=== PATIENT | male | born 1945 | race Caucasian/White ===

== ENCOUNTER 2019-09-08 20:58 | Observation (INO) | payer MEDICARE ==
[2019-09-08 21:17] LABS: #Eosinphils 0.2 thou/uL (0.0-0.7); #Lymphocytes 1.8 thou/uL (1.20-3.40); #Monocytes 0.8 thou/uL (0.11-0.59); #Neutrophils 2.6 thou/uL (1.40-6.50); %Basophils 0.7 % (0.0-1.0); %Eosinophils 3.6 % (0.0-10.0); %Lymphocytes 32.7 % (21.0-51.0); %Monocytes 14.9 % (0.0-10.0); %Neutrophils 48.1 % (42.0-75.0); Hemoglobin 14.1 g/dL (14.0-18.0); Mean Corpuscular HGB CONC 33.9 g/dL (32.0-36.0); Mean Corpuscular Hemoglobin 33.1 pg (27.0-31.0); Mean Corpuscular Volume 97.8 fL (78.0-98.0); Mean Platelet Volume 6.9 fL (7.4-10.4); Platelet Count 225 thou/uL (130-400); RBC Distribution Width 11.3 % (11.5-14.5); Red Blood Cell (RBC) Count 4.25 mill/uL (4.70-6.10); White Blood Cell (WBC) Count 5.3 thou/uL (4.8-10.8)
[2019-09-08 21:34] LABS: ALT (SGPT) 14 U/L (8-55); AST (SGOT) 17 U/L (5-34); Alkaline Phosphatase 68 U/L (40-110); Anion Gap 11 mmol/L (10-20); BUN (Urea Nitrogen) 28 mg/dL (8.4-25.7); Bilirubin, Total 0.5 mg/dL (0.2-1.2); Calc. Creatinine Clearance 0 mL/min (70-130); Carbon Dioxide 29 mmol/L (23-31); Chloride 102 mmol/L (98-107); Estimated GFR-MDRD Greater than 90; Globulin 2.3 g/dL (2.4-3.5); Glucose 115 mg/dL (83-110); Potassium 4.1 mmol/L (3.5-5.1); Protein, Total 6.3 g/dL (5.8-8.1); Sodium 138 mmol/L (136-145)
[2019-09-08 21:38] LABS: CKMB 3.2 ng/mL (0-6.6)
--- NOTE | 2019-09-08 22:04 | RAD ---
Chest AP view INDICATION: Chest pain COMPARISON: Chest radiograph dated March 07, 2015 FINDINGS: Lungs:Stable left lower lobe scarring. No airspace consolidation. Cardiac silhouette:The cardiomediastinal silhouette appears within normal limits. Pulmonary vasculature:Normal Pleural spaces:No pleural effusion or pneumothorax is demonstrated. Upper abdomen:No abnormality seen. Osseous structures: No acute osseous abnormality. Additional findings:None. IMPRESSION: No acute cardiopulmonary abnormality.
[2019-09-08] MEDS ORDERED: Aspirin Chewable 81 MG TAB ONE (22:19)
[2019-09-09 01:03] LABS: Troponin I Less than 0.010 ng/mL (< 0.028)
[2019-09-09] MEDS ORDERED: Nitroglycerin 0.4 MG TAB (25 Tab Bottle) PO PRN (01:04)
--- NOTE | 2019-09-09 01:43 | HP ---
TIME OF ASSESSMENT: 29. CHIEF COMPLAINT: Central chest pain radiating to the left jaw. HISTORY OF PRESENT ILLNESS: Mr. Larry is a 74-year-old gentleman presenting to the emergency department with complaints of central chest pain that started while he was watching TV earlier this evening. The patient states the pain persisted for an extended period of time. He is unsure exactly how long, but he became concerned when the pain radiated to the right side of his jaw. The patient reports having 4 coronary artery stents in the past back in 2001. He also reports having a stress test in 2013, which was normal. The patient states this evening when the pain started, it was between 5/10 in severity. He took nitroglycerin x3, each dose 20 minutes apart. States with each dose, it came down by about one point. He also tried taking milk of magnesia and took his lisinopril. His blood pressure after the nitroglycerin was in the 140s. He is unsure what it was prior to taking it. The patient denies any associated nausea, vomiting, diaphoresis, or shortness of breath. States he has felt well in recent days. He has noted some swelling in his right ankle, which he states is chronic due to previous injury. EMERGENCY DEPARTMENT COURSE: In the emergency department, the patient underwent an EKG which showed normal sinus rhythm with a heart rate of 72. He was noted to have an incomplete right bundle-branch block. He was given 324 mg of aspirin. He had a chest x-ray done, which showed no acute cardiopulmonary abnormality. He had laboratory studies done including a D-dimer which was negative. White count was 5.3, hemoglobin 41.6, platelets 225. BUN 28, creatinine 0.75, GFR greater than 90, glucose 115. LFTs unremarkable. Lipase normal. CK-MB 3.2. Troponin negative. PAST MEDICAL HISTORY: 1. Coronary artery disease. 2. Hypertension. 3. Obesity. PAST SURGICAL HISTORY: 1. Hernia repair. 2. Cardiac stents x4 in 2001. SOCIAL HISTORY: The patient denies any tobacco use, alcohol consumption, or illicit drug use. PHYSICAL EXAMINATION: GENERAL: The patient appears well developed, well nourished, is in no acute distress. VITAL SIGNS: Temperature 98.5, pulse 64, blood pressure 134/75, respirations 22, O2 saturation 98% on room air. HEENT: Normocephalic and atraumatic. Pupils are equal, round, and reactive to light. Sclerae without icterus. Oropharynx is clear. NECK: Supple. No lymphadenopathy. LUNGS: Clear to auscultation bilaterally without any wheezes, rales, or rhonchi. CARDIAC: Regular rate and rhythm without audible murmurs, rubs, or gallops. ABDOMEN: Soft, nontender, nondistended. Normoactive bowel sounds present. No guarding or rigidity. No renal angle tenderness. EXTREMITIES: Notable for swelling involving the right lower leg, which the patient states is chronic. No calf tenderness. NEUROLOGIC: Alert and oriented x3. SKIN: Warm and dry. INVESTIGATIONS: As mentioned above in HPI. IMPRESSION AND PLAN: Mr. Larry is a pleasant 74-year-old gentleman who is being admitted for management of the followin. Acute coronary syndrome rule out. The patient with central chest pain radiating to the jaw. EKG showed an incomplete right bundle-branch block. No ST changes or T-wave abnormalities. Troponin negative. Stress test done in May 2014 was a nuclear medicine myocardial perfusion scan that showed an unremarkable myocardial perfusion. The patient initially requesting to have an exercise treadmill stress test done, which he states was what he needed to have done in the past, but he does not undergo farm stress test. Given that the last stress test was a simple treadmill test for rather a nuclear medicine scan, the patient states he would like to discuss further with Dr. Sood before proceeding with any additional testing. The patient does not recall when his last echo was. At present, he remains pain free. He will remain on continuous cardiac monitoring. As mentioned, we will continue to trend troponins. 2. Hypertension. Monitor blood pressure. Resume home medications once verified. 3. Gastrointestinal prophylaxis with famotidine. 4. Deep venous thrombosis prophylaxis. The patient is ambulatory. 5. Code status full. Surrogate decision maker is his , Karmen Novoa. Case discussed with attending who agrees with plan of care as described above. Job ID: [id number]
[2019-09-09] MEDS: Sodium Chloride 0.9% 1,000 ML IV SCH ×2 (01:53→18:15)
[2019-09-09 04:05] LABS: #Eosinphils 0.1 thou/uL (0.0-0.7); #Lymphocytes 1.3 thou/uL (1.20-3.40); #Monocytes 0.6 thou/uL (0.11-0.59); #Neutrophils 2.8 thou/uL (1.40-6.50); %Basophils 0.2 % (0.0-1.0); %Eosinophils 3.1 % (0.0-10.0); %Lymphocytes 27.6 % (21.0-51.0); %Monocytes 11.6 % (0.0-10.0); %Neutrophils 57.5 % (42.0-75.0); Hemoglobin 13.3 g/dL (14.0-18.0); Mean Corpuscular HGB CONC 35.2 g/dL (32.0-36.0); Mean Corpuscular Hemoglobin 34.2 pg (27.0-31.0); Mean Corpuscular Volume 97.3 fL (78.0-98.0); Mean Platelet Volume 7.3 fL (7.4-10.4); Platelet Count 196 thou/uL (130-400); RBC Distribution Width 11.2 % (11.5-14.5); Red Blood Cell (RBC) Count 3.88 mill/uL (4.70-6.10); White Blood Cell (WBC) Count 4.8 thou/uL (4.8-10.8)
[2019-09-09 04:33] LABS: Anion Gap 9 mmol/L (10-20); BUN (Urea Nitrogen) 22 mg/dL (8.4-25.7); Calc. Creatinine Clearance 0 mL/min (70-130); Calcium 8.8 mg/dL (7.8-10.44); Carbon Dioxide 25 mmol/L (23-31); Cardiac Risk 2.5 (Less than 4.5); Chloride 105 mmol/L (98-107); Cholesterol 124 mg/dl (< 200 Desired); Estimated GFR-MDRD Greater than 90; Glucose 98 mg/dL (83-110); HDL Cholesterol 50 mg/dL (>60 Neg Risk); LDL Cholesterol, Calculated 65 mg/dL; Potassium 4.1 mmol/L (3.5-5.1); Sodium 135 mmol/L (136-145); Triglycerides 45 mg/dL (Less than 150)
[2019-09-09 06:06] VITALS: BMI 26.7
[2019-09-09] MEDS ORDERED: Lisinopril 5 MG TAB PO SCH (09:00)
[2019-09-09] MEDS ORDERED: Famotidine/PF 20 mg/2ml Vial SLOW IVP SCH (09:00)
[2019-09-09] MEDS ORDERED: Aspirin 81 mg Enteric Coated Tablet PO SCH (09:00)
[2019-09-09] MEDS ORDERED: Clopidogrel Bisulfate 75 MG TAB PO SCH (09:00)
[2019-09-09] MEDS ORDERED: Mag-Al 1200 mg/1200 mg/30 ML UDCUP PO PRN (10:16)
--- NOTE | 2019-09-09 10:37 | PRG ---
DATE OF SERVICE: 09/09/2019 SUBJECTIVE: Mr. Larry was admitted to the hospital with epigastric pain radiating up the middle of his chest. It is atypical. The patient does have history of esophageal reflux as well as coronary artery disease. OBJECTIVE: VITAL SIGNS: This morning, blood pressure 164/80, pulse 64 and regular. LUNGS: Clear. CARDIAC: Normal S1, normal S2. ABDOMEN: Soft, nontender. EXTREMITIES: There is no edema. DIAGNOSTIC STUDIES: EKG shows no acute changes. LABORATORY DATA: Cardiac enzymes were negative. ASSESSMENT: 1. History of coronary artery disease with previous stent implantation. 2. History of esophageal reflux, not taking any medicines for that. PLAN: 1. Give him Pepcid IV as is being ordered. 2. One dose of Maalox. 3. Proceed with stress testing. Job ID: [id number]
[2019-09-09 16:44] VITALS: BP 153/59; TEMP 97.4
--- NOTE | 2019-09-09 16:51 | NM ---
CARDIAC SPECT: 09/09/19 HISTORY: 74-year-old male with chest pain, coronary artery disease, status post stent, hypertension. TECHNIQUE: A myocardial perfusion scan is performed using the single isotope one day protocol with technetium 99 m-Sestamibi. 10 millicuries injected intravenously for rest followed by 27 millicuries for the stress study. Excise stress was monitored and interpreted by . FINDINGS: Fairly homogeneous tracer distribution seen in the myocardial segments without fixed or reversible de fects. Gated SPECT LVEF: 72%. Wall motion exam: Normal. IMPRESSION: Normal myocardial perfusion scan. POS: OFF
[2019-09-09] MEDS ORDERED: Rosuvastatin 20 MG TAB PO SCH (21:00)
--- NOTE | 2019-09-10 14:49 | DIS ---
DATE OF ADMISSION: 09/09/2019 DATE OF DISCHARGE: 09/09/2019 PRIMARY CARE PHYSICIAN: Georges Corbett. REASON FOR ADMISSION: Chest pain. DIAGNOSES AT DISCHARGE: 1. Chest pain, resolved. 2. Coronary artery disease with previous stent placement. 3. Esophageal reflux disease. 4. Hypertension. 5. Obesity. PROCEDURES: Nuclear medicine stress testing showing a normal myocardial perfusion scan. CONSULTATIONS: Cardiology, Dr. Sood. SUMMARY OF HOSPITAL COURSE: This is a 74-year-old white male with a known history of coronary artery disease and previous stent. He developed chest pain, took some old nitroglycerins he had at home. This helped chest pain come down. He came into the emergency room. There, he was found to have a negative EKG, negative D-dimer, normal chest x-ray. Negative troponins. The patient was observed in the hospital. Dr. Sood was consulted from Cardiology due to the patient's known coronary artery disease. Dr. Sood ordered a nuclear medicine stress test which came back normal. I did discuss the patient with Dr. Sood and he recommended discharge on Protonix and then followup with him in the clinic. The patient was asymptomatic at the time of discharge and was eager to go home. He did ask that I call in a new prescription for the nitroglycerin as his are quite old. DISCHARGE MANAGEMENT: Discharged home. ACTIVITY: As tolerated. DIET: Healthy heart diet. FOLLOWUP: Follow up with Dr. Sood, his office will call to make the appointment. DISCHARGE MEDICATIONS: 1. Aspirin 81 mg daily, 30 tablets dispensed. 2. Nitroglycerin 0.4 mg sublingual q.5 minutes up to three doses as needed for chest pain, 20 tablets dispensed. 3. Pantoprazole 40 mg daily, 30 tablets dispensed. 4. Plavix 75 mg daily. 5. Lisinopril 5 mg twice a day. 6. Rosuvastatin 20 mg at night. 7. Metoprolol-XL 25 mg daily. Job ID: [id number]
--- NOTE | 2019-09-12 14:30 | EKG ---
Test Reason : Blood Pressure : / mmHG Vent. Rate : 072 BPM Atrial Rate : 072 BPM P-R Int : 196 ms QRS Dur : 102 ms QT Int : 368 ms P-R-T Axes : 051 017 050 degrees QTc Int : 402 ms Normal sinus rhythm Possible Left atrial enlargement Incomplete right bundle branch block Septal infarct , age undetermined Abnormal ECG Confirmed by RACH MATHUR M.D. ([id number]), slot editor SANCHEZ NUÑEZ ([id number]) on 09/12/2019 2:29:42 PM Referred By: Confirmed By:RACH MATHUR M.D.
== END 2019-09-09 18:47 | disposition home or self-care (01) ==
LOC: ERS 20:58 → 2SW 09-09 00:59
PROVIDERS: ADMIT Internal Medicine; ATTEND Emergency Medicine
DX: R07.89 Other chest pain (principal); I45.10 Unspecified right bundle-branch block; I10 Essential (primary) hypertension; I25.10 Atherosclerotic heart disease of native coronary artery without angina pectoris; K21.9 Gastro-esophageal reflux disease without esophagitis; E66.9 Obesity, unspecified; Z68.26 Body mass index [BMI] 26.0-26.9, adult; Z79.02 Long term (current) use of antithrombotics/antiplatelets; Z79.899 Other long term (current) drug therapy; Z88.0 Allergy status to penicillin; Z95.5 Presence of coronary angioplasty implant and graft
CPT/HCPCS: 71045; 78452; 80048; 80053; 80061; 82553; 83690; 84484 ×3; 85025 ×2; 85379; 93005; 93017; 96361; 96374; 97139; 99285; A9500; G0378 ×2; 36415; S0028

== ENCOUNTER 2022-01-17 10:18 | Outpatient (CLI) | payer MEDICARE ==
[2022-01-17 12:28] LABS: Hemoglobin 14.5 g/dL (13.5-17.5); Mean Corpuscular HGB CONC 34.3 g/dL (32.0-36.0); Mean Corpuscular Hemoglobin 32.6 pg (27.0-33.0); Mean Corpuscular Volume 95.1 fl (81.2-95.1); Mean Platelet Volume 9.9 fl (7.4-10.4); Platelet Count 247 10x3/uL (150-450); RBC Distribution Width 12.3 % (11.5-14.5); Red Blood Cell (RBC) Count 4.45 10x6/uL (4.32-5.72); White Blood Cell (WBC) Count 4.6 10x3/uL (3.5-10.5)
[2022-01-17 12:56] LABS: INR-International Normal Ratio 0.9; PTT 26.4 sec (22.0-33.0)
[2022-01-17 13:27] LABS: Anion Gap 15 mmol/L (10-20); BUN (Urea Nitrogen) 18 mg/dL (8.4-25.7); Calc. Creatinine Clearance 0 mL/min (70-130); Calcium 9.4 mg/dL (7.8-10.44); Carbon Dioxide 24 mmol/L (23-31); Chloride 104 mmol/L (98-107); Glucose 108 mg/dL (83-110); Potassium 5.1 mmol/L (3.5-5.1); Sodium 138 mmol/L (136-145)
== END 2022-01-17 10:19 | disposition home or self-care (01) ==
LOC: LABBT 10:18
PROVIDERS: ATTEND Urology
DX: Z01.818 Encounter for other preprocedural examination (principal); D49.4 Neoplasm of unspecified behavior of bladder; Z20.822 Contact with and (suspected) exposure to COVID-19
CPT/HCPCS: 80048; 85027; 85610; 85730; 87086; 93005; U0003; U0005; 93010

== ENCOUNTER 2022-01-22 05:53 | Inpatient (IN) | payer MEDICARE ==
[2022-01-19 10:44] VITALS: BMI 27.3
[2022-01-22] MEDS ORDERED: Iopamidol 45 ML ONE (07:20)
[2022-01-22] MEDS ORDERED: Levofloxacin 500 mg/D5W 100 ml Premix Bag ONE (07:28)
[2022-01-22] MEDS ORDERED: Fentanyl 100 MCG/2 ML VIAL ONE (07:32)
[2022-01-22] MEDS ORDERED: Dexamethasone 20 MG/5 ML VIAL ONE (07:38)
[2022-01-22] MEDS ORDERED: Lidocaine 1% PF 5 ML VIAL ONE (07:38)
[2022-01-22] MEDS ORDERED: Rocuronium Bromide 10 MG/ML (10ML VIAL) ONE (07:38)
[2022-01-22] MEDS ORDERED: PROPOFOL 200 MG/20 ML VIAL ONE (07:38)
[2022-01-22] MEDS ORDERED: Ondansetron PF 4 MG/2 ML Vial ONE (07:38)
[2022-01-22] MEDS ORDERED: Racepinephrine 2.25% 0.5 ML NEB ONE (08:59)
[2022-01-22] MEDS ORDERED: Oxymetazoline HCl 0.05% (30 ML BOT) ONE (11:54)
[2022-01-22] MEDS ORDERED: Nitroglycerin 0.4 MG TAB 1 EACH SL PRN (13:53)
[2022-01-22] MEDS ORDERED: traMADol HCl 50 MG TAB PO PRN (13:58)
[2022-01-22] MEDS ORDERED: D5 1/2 NS w/10 mEq KCl 1,000 ML/1,000 ML BAG IV SCH (14:15)
[2022-01-22] MEDS ORDERED: Metoprolol Tartrate 5 MG/5 ML VIAL ONE ×2 (15:24→16:06)
[2022-01-22] MEDS ORDERED: hydrALAZINE 20 MG/ML VIAL ONE (16:18)
[2022-01-22] MEDS ORDERED: Metoprolol Tartrate 5 MG/5 ML VIAL IVP SCH (17:00)
[2022-01-22] MEDS: Lisinopril 5 MG TAB PO SCH (20:23)
[2022-01-22] MEDS ORDERED: Rosuvastatin 20 MG TAB PO SCH (21:00)
[2022-01-23 08:06] VITALS: BP 110/61; TEMP 97.6
[2022-01-23] MEDS: Lisinopril 5 MG TAB PO SCH (08:54)
[2022-01-23] MEDS ORDERED: Vitamin E 400 UNITS CAP PO SCH (09:00)
[2022-01-23] MEDS ORDERED: Zinc Sulfate 220 MG CAP PO SCH (09:00)
[2022-01-23] MEDS ORDERED: Floranex 1 GM Packet PO SCH (09:00)
[2022-01-23] MEDS ORDERED: Cyanocobalamin (Vitamin B-12) 1,000 MCG TAB PO SCH (09:00)
[2022-01-23] MEDS ORDERED: Ascorbic Acid 500 mg Chewable Tablet PO SCH (09:00)
[2022-01-23] MEDS ORDERED: [UNRECOGNIZED DRUG - OTHER] FS SCH (09:00)
[2022-01-23] MEDS ORDERED: Multivit, Therapeutic 1 TAB PO SCH (09:00)
[2022-01-23] MEDS ORDERED: CYANOCOBALAMIN FS SCH (09:00)
[2022-01-23] MEDS ORDERED: Nitrofurantoin Macrocrystal 50 MG CAP PO SCH (09:00)
[2022-01-23] MEDS ORDERED: GARLIC PO SCH (09:00)
== END 2022-01-23 11:00 | disposition home or self-care (01) | DRG 670 ==
LOC: SDC 05:53 → SURG A 13:42
PROVIDERS: ADMIT Urology; ATTEND Urology
PROC: 0CJS8ZZ Inspection of Larynx, Via Natural or Artificial Opening Endoscopic (ICD-10-PCS; principal; 2022-01-22)
PROC: 0TBC8ZZ Excision of Bladder Neck, Via Natural or Artificial Opening Endoscopic (ICD-10-PCS; 2022-01-22)
DX: D49.4 Neoplasm of unspecified behavior of bladder (principal); J38.5 Laryngeal spasm; R31.9 Hematuria, unspecified; I10 Essential (primary) hypertension; I25.10 Atherosclerotic heart disease of native coronary artery without angina pectoris; K21.9 Gastro-esophageal reflux disease without esophagitis; N40.0 Benign prostatic hyperplasia without lower urinary tract symptoms; E78.00 Pure hypercholesterolemia, unspecified; Z88.0 Allergy status to penicillin; Z98.890 Other specified postprocedural states; Z95.5 Presence of coronary angioplasty implant and graft
CPT/HCPCS: 71045; 76000; 88305; A4216; J0360; J1100; J1956; J2405; J2704; J3010; J7620; J9280; Q9967

== ENCOUNTER 2022-02-03 18:16 | Emergency (ER) | payer MEDICARE ==
[2022-02-03] MEDS ORDERED: cefTRIAXone\\ROCEPHIN 1 GM VIAL ONE (18:37)
[2022-02-03] MEDS ORDERED: Acetaminophen 500 MG TAB ONE (18:37)
[2022-02-03 18:52] LABS: #Lymphocytes 0.5 thou/uL (1.20-3.40); #Monocytes 0.5 thou/uL (0.11-0.59); #Neutrophils 9.2 thou/uL (1.40-6.50); %Eosinophils 0.3 % (0.0-10.0); %Lymphocytes 4.5 % (21.0-51.0); %Monocytes 4.6 % (0.0-10.0); %Neutrophils 90.5 % (42.0-75.0); Hemoglobin 13.9 g/dL (14.0-18.0); Mean Corpuscular HGB CONC 33.3 g/dL (32.0-36.0); Mean Corpuscular Hemoglobin 33.2 pg (27.0-31.0); Mean Corpuscular Volume 99.4 fL (78.0-98.0); Mean Platelet Volume 6.7 fL (7.4-10.4); Platelet Count 245 thou/uL (130-400); RBC Distribution Width 11.3 % (11.5-14.5); White Blood Cell (WBC) Count 10.2 thou/uL (4.8-10.8)
[2022-02-03 18:59] LABS: PTT 28.9 sec (22.9-36.1); Prothrombin Time 13.3 sec (12.0-14.7)
[2022-02-03 19:10] LABS: ALT (SGPT) 14 U/L (8-55); AST (SGOT) 16 U/L (5-34); Alkaline Phosphatase 61 U/L (40-110); Anion Gap 15 mmol/L (10-20); BUN (Urea Nitrogen) 32 mg/dL (8.4-25.7); Bilirubin, Total 0.8 mg/dL (0.2-1.2); Calc. Creatinine Clearance 0 mL/min (70-130); Calcium 9.4 mg/dL (7.8-10.44); Carbon Dioxide 23 mmol/L (23-31); Chloride 101 mmol/L (98-107); Estimated GFR 94; Glucose 124 mg/dL (83-110); Potassium 3.9 mmol/L (3.5-5.1); Sodium 135 mmol/L (136-145)
[2022-02-03 20:06] LABS: Bilirubin Negative (Negative); Blood, Urine 3+ (Negative); Clarity Turbid (Clear); Glucose, Urine (Dipstick) Normal (Negative); Ketone, Urine 40 mg/dL (Negative); Leukocyte 250 Leu/uL (Negative); Mucous/LPF Rare LPF (<2+); Nitrite Negative (Negative); Protein, Urine (Dipstick) 70 mg/dL (Neg-Trace); RBC/HPF Greater than 50 HPF (0-3); Specific Gravity, Urine 1.031 (1.002-1.036); Squamous Epithelial 0-3 HPF (0-3); Urobilinogen Normal mg/dL (Less than 2); WBC/HPF 21-50 HPF (0-3); pH, Urine 5.5 (5.0-9.0)
[2022-02-03 20:18] LABS: Bacteria/HPF Rare-Few HPF (None Seen)
== END 2022-02-03 20:55 | disposition home or self-care (01) ==
LOC: ERS 18:16
DX: N39.0 Urinary tract infection, site not specified (principal); I10 Essential (primary) hypertension; Z79.02 Long term (current) use of antithrombotics/antiplatelets; Z79.899 Other long term (current) drug therapy
CPT/HCPCS: 36415; 80053; 81003; 81015; 83605; 85025; 85610; 85730; 87040; 87077; 87086; 87149; 93005; 96365; J0696

== ENCOUNTER 2022-02-12 22:46 | Inpatient (IN) | payer MEDICARE ==
[2022-02-12 23:57] LABS: Bilirubin Negative (Negative); Blood, Urine Large (Negative); Glucose, Urine (Dipstick) Negative (Negative); Ketone, Urine Trace mg/dL (Negative); Leukocyte Small (Negative); Nitrite Positive (Negative); Protein, Urine (Dipstick) > or equal to 300 mg/dL (Neg-Trace); Specific Gravity, Urine 1.015 (1.005-1.030)
[2022-02-12 23:59] LABS: Clarity OPAQUE (Clear); RBC/HPF Greater than 50 HPF (0-3)
[2022-02-13] LABS: Bacteria/HPF None Seen HPF (None Seen); Squamous Epithelial 0-3 HPF (0-3)
[2022-02-13 00:30] LABS: Anion Gap 16 mmol/L (10-20); BUN (Urea Nitrogen) 23 mg/dL (8.4-25.7); Calc. Creatinine Clearance 0 mL/min (70-130); Carbon Dioxide 21 mmol/L (23-31); Chloride 102 mmol/L (98-107); Estimated GFR 95; Glucose 109 mg/dL (83-110); Potassium 3.9 mmol/L (3.5-5.1); Sodium 135 mmol/L (136-145)
[2022-02-13] MEDS ORDERED: Morphine 10 MG/ML VIAL ONE (01:08)
[2022-02-13] MEDS ORDERED: Morphine 4 MG/ML VIAL ONE ×2 (01:09→03:18)
[2022-02-13 03:08] LABS: #Basophils 0.1 thou/uL (0.0-0.2); #Eosinphils 0.1 thou/uL (0.0-0.7); #Lymphocytes 1.7 thou/uL (1.20-3.40); #Monocytes 0.7 thou/uL (0.11-0.59); #Neutrophils 4.1 thou/uL (1.40-6.50); %Basophils 0.9 % (0.0-1.0); %Eosinophils 1.5 % (0.0-10.0); %Lymphocytes 24.9 % (21.0-51.0); %Monocytes 10.8 % (0.0-10.0); %Neutrophils 61.9 % (42.0-75.0); Hemoglobin 13.8 g/dL (14.0-18.0); Mean Corpuscular HGB CONC 33.1 g/dL (32.0-36.0); Mean Corpuscular Hemoglobin 33.8 pg (27.0-31.0); Mean Platelet Volume 6.9 fL (7.4-10.4); Platelet Count 328 thou/uL (130-400); RBC Distribution Width 11.4 % (11.5-14.5); Red Blood Cell (RBC) Count 4.09 mill/uL (4.70-6.10); White Blood Cell (WBC) Count 6.6 thou/uL (4.8-10.8)
[2022-02-13] MEDS ORDERED: Ondansetron PF 4 MG/2 ML Vial ONE (03:18)
[2022-02-13 05:39] VITALS: BMI 25.7
[2022-02-13 06:26] LABS: #Lymphocytes 0.9 thou/uL (1.20-3.40); #Monocytes 0.9 thou/uL (0.11-0.59); #Neutrophils 8.7 thou/uL (1.40-6.50); %Eosinophils 0.1 % (0.0-10.0); %Lymphocytes 8.8 % (21.0-51.0); %Monocytes 8.4 % (0.0-10.0); %Neutrophils 82.8 % (42.0-75.0); Mean Corpuscular HGB CONC 32.3 g/dL (32.0-36.0); Mean Corpuscular Hemoglobin 32.8 pg (27.0-31.0); Mean Platelet Volume 6.4 fL (7.4-10.4); Platelet Count 297 thou/uL (130-400); RBC Distribution Width 11.2 % (11.5-14.5); Red Blood Cell (RBC) Count 3.97 mill/uL (4.70-6.10); White Blood Cell (WBC) Count 10.5 thou/uL (4.8-10.8)
[2022-02-13 07:50] LABS: SARS-CoV-2 NAA Rapid Test Not Detected (NotDetected)
[2022-02-13] MEDS ORDERED: Polyethylene Glycol 3350 17 GM Packet PO PRN (07:59)
[2022-02-13] MEDS ORDERED: Acetaminophen 325 MG TAB PO PRN (07:59)
[2022-02-13] MEDS ORDERED: Ondansetron PF 4 MG/2 ML Vial IVP PRN (07:59)
[2022-02-13] MEDS: Morphine 2 MG/ML VIAL SLOW IVP PRN ×2 (08:50→14:31)
[2022-02-13] MEDS ORDERED: Meropenem 1 GM in Sodium Chloride 0.9% 100 ML IVPB SCH ×2 (09:00→17:00)
[2022-02-13] MEDS: traMADol HCl 50 MG TAB PO PRN ×2 (16:30→22:40)
[2022-02-13] MEDS: Rosuvastatin 20 MG TAB PO SCH (20:51)
[2022-02-13] MEDS: Lisinopril 5 MG TAB PO SCH (20:51)
[2022-02-14 06:50] LABS: #Eosinphils 0.1 thou/uL (0.0-0.7); #Lymphocytes 1.4 thou/uL (1.20-3.40); #Monocytes 0.9 thou/uL (0.11-0.59); #Neutrophils 5.4 thou/uL (1.40-6.50); %Basophils 0.4 % (0.0-1.0); %Eosinophils 1.8 % (0.0-10.0); %Lymphocytes 17.5 % (21.0-51.0); %Monocytes 11.3 % (0.0-10.0); %Neutrophils 69.1 % (42.0-75.0); Hemoglobin 12.1 g/dL (14.0-18.0); Mean Corpuscular HGB CONC 33.8 g/dL (32.0-36.0); Mean Corpuscular Hemoglobin 33.3 pg (27.0-31.0); Mean Corpuscular Volume 98.7 fL (78.0-98.0); Mean Platelet Volume 6.8 fL (7.4-10.4); Platelet Count 242 thou/uL (130-400); RBC Distribution Width 11.3 % (11.5-14.5); Red Blood Cell (RBC) Count 3.64 mill/uL (4.70-6.10); White Blood Cell (WBC) Count 7.8 thou/uL (4.8-10.8)
[2022-02-14 06:55] LABS: Anion Gap 11 mmol/L (10-20); BUN (Urea Nitrogen) 22 mg/dL (8.4-25.7); Calc. Creatinine Clearance 102 mL/min (70-130); Calcium 8.9 mg/dL (7.8-10.44); Carbon Dioxide 25 mmol/L (23-31); Chloride 103 mmol/L (98-107); Estimated GFR 95; Glucose 106 mg/dL (83-110); Potassium 4.1 mmol/L (3.5-5.1); Sodium 135 mmol/L (136-145)
[2022-02-14] MEDS: Lisinopril 5 MG TAB PO SCH ×2 (08:47→21:40)
[2022-02-14] MEDS: traMADol HCl 50 MG TAB PO PRN (08:47)
[2022-02-14] MEDS: Rosuvastatin 20 MG TAB PO SCH (21:39)
[2022-02-15 06:14] LABS: Anion Gap 10 mmol/L (10-20); BUN (Urea Nitrogen) 16 mg/dL (8.4-25.7); Calc. Creatinine Clearance 127 mL/min (70-130); Calcium 8.5 mg/dL (7.8-10.44); Carbon Dioxide 25 mmol/L (23-31); Chloride 103 mmol/L (98-107); Estimated GFR 101; Glucose 108 mg/dL (83-110); Potassium 3.9 mmol/L (3.5-5.1); Sodium 134 mmol/L (136-145)
[2022-02-15] MEDS: Lisinopril 5 MG TAB PO SCH (08:28)
[2022-02-15 11:23] VITALS: BP 100/61; TEMP 97.3
== END 2022-02-15 12:25 | disposition home or self-care (01) | DRG 920 ==
LOC: ERS 22:46 → SURG A 02-13 04:17 → OBSVTOIN 02-14 10:24
PROVIDERS: ADMIT Internal Medicine; ATTEND Internal Medicine
PROC: 3E1K78Z Irrigation of Genitourinary Tract using Irrigating Substance, Via Natural or Artificial Opening (ICD-10-PCS; principal; 2022-02-14)
DX: N99.820 Postprocedural hemorrhage of a genitourinary system organ or structure following a genitourinary system procedure (principal); D68.32 Hemorrhagic disorder due to extrinsic circulating anticoagulants; R31.0 Gross hematuria; Z20.822 Contact with and (suspected) exposure to COVID-19; I10 Essential (primary) hypertension; I25.10 Atherosclerotic heart disease of native coronary artery without angina pectoris; R33.9 Retention of urine, unspecified; Y83.8 Other surgical procedures as the cause of abnormal reaction of the patient, or of later complication, without mention of misadventure at the time of the procedure; T45.525A Adverse effect of antithrombotic drugs, initial encounter; Z87.440 Personal history of urinary (tract) infections; Z88.0 Allergy status to penicillin; Z79.899 Other long term (current) drug therapy; Z79.02 Long term (current) use of antithrombotics/antiplatelets; Z95.5 Presence of coronary angioplasty implant and graft; Z98.890 Other specified postprocedural states; Z85.51 Personal history of malignant neoplasm of bladder
CPT/HCPCS: 36415; 51700; 80048; 81003; 81015; 85025; 87086; 96372; 96374; 96375; 96376; G0378; J2185; J2270; J2405; J3490; U0002

== ENCOUNTER 2022-08-03 03:18 | Observation (INO) | payer OTHER, MEDICARE ==
[2022-08-03 05:10] LABS: #Eosinphils 0.1 thou/uL (0.0-0.7); #Lymphocytes 0.8 thou/uL (1.20-3.40); #Monocytes 0.8 thou/uL (0.11-0.59); #Neutrophils 5.2 thou/uL (1.40-6.50); %Basophils 0.1 % (0.0-1.0); %Eosinophils 1.7 % (0.0-10.0); %Lymphocytes 11.7 % (21.0-51.0); %Monocytes 11.1 % (0.0-10.0); %Neutrophils 75.4 % (42.0-75.0); Hemoglobin 13.8 g/dL (14.0-18.0); Mean Corpuscular HGB CONC 33.9 g/dL (32.0-36.0); Mean Corpuscular Hemoglobin 33.3 pg (27.0-31.0); Mean Corpuscular Volume 98.2 fl (78.0-98.0); Mean Platelet Volume 7.2 fL (7.4-10.4); Platelet Count 212 10x3/uL (130-400); RBC Distribution Width 11.5 % (11.5-14.5); Red Blood Cell (RBC) Count 4.16 mill/uL (4.70-6.10); White Blood Cell (WBC) Count 6.9 10x3/uL (4.8-10.8)
[2022-08-03 05:32] LABS: ALT (SGPT) 11 U/L (8-55); AST (SGOT) 18 U/L (5-34); Albumin 3.8 g/dL (3.4-4.8); Alkaline Phosphatase 55 U/L (40-110); Anion Gap 11 mmol/L (10-20); BUN (Urea Nitrogen) 16 mg/dL (8.4-25.7); Bilirubin, Total 0.9 mg/dL (0.2-1.2); Calc. Creatinine Clearance 0 mL/min (70-130); Calcium 9.3 mg/dL (7.8-10.44); Carbon Dioxide 26 mmol/L (23-31); Chloride 101 mmol/L (98-107); Estimated GFR 97; Globulin 2.5 g/dL (2.4-3.5); Glucose 106 mg/dL (83-110); Lipase 24 U/L (8-78); Potassium 3.9 mmol/L (3.5-5.1); Protein, Total 6.3 g/dL (5.8-8.1); Sodium 134 mmol/L (136-145)
[2022-08-03] MEDS ORDERED: Aspirin Chewable 81 MG TAB ONE (06:25)
[2022-08-03] MEDS ORDERED: Lidocaine Viscous Sol 2% 15 ml UD Cup ONE (06:27)
[2022-08-03] MEDS ORDERED: Mag-Al 1200 mg/1200 mg/30 ML UDCUP ONE (06:27)
[2022-08-03 09:39] LABS: Troponin I Less than 0.010 ng/mL (< 0.028)
[2022-08-03] MEDS ORDERED: Iopamidol-370 76% 500 ML 1 ML ONE (10:13)
[2022-08-03] MEDS ORDERED: Ondansetron ODT 4 MG TAB PO PRN (11:11)
[2022-08-03] MEDS ORDERED: Acetaminophen 325 MG TAB PO PRN (11:11)
[2022-08-03] MEDS ORDERED: Polyethylene Glycol 3350 17 GM Packet PO PRN (11:11)
[2022-08-03] MEDS ORDERED: Nitroglycerin 0.4 MG TAB (25 Tab Bottle) SL PRN (11:14)
[2022-08-03] MEDS ORDERED: Electrolyte Replacement Protocol 1 EACH FS SCH (11:15)
[2022-08-03] MEDS ORDERED: hydrALAZINE 20 MG/ML VIAL SLOW IVP PRN (11:15)
[2022-08-03 12:58] LABS: Troponin I Less than 0.010 ng/mL (< 0.028)
[2022-08-03 17:13] VITALS: BMI 28.1
[2022-08-03] MEDS: Lisinopril 5 MG TAB PO SCH (20:33)
[2022-08-03] MEDS ORDERED: Rosuvastatin 20 MG TAB PO SCH (21:00)
[2022-08-04 00:54] LABS: Bacteria/HPF None Seen HPF (None Seen); Bilirubin Negative (Negative); Blood, Urine Negative (Negative); CAUTI Indications for Culture Alt mental st,lethar; Clarity Clear (Clear); Glucose, Urine (Dipstick) Normal (Negative); Ketone, Urine 60 mg/dL (Negative); Leukocyte Negative Leu/uL (Negative); Nitrite Negative (Negative); Protein, Urine (Dipstick) Negative (Neg-Trace); RBC/HPF 0-3 HPF (0-3); Specific Gravity, Urine 1.024 (1.002-1.036); Squamous Epithelial None Seen HPF (0-3); Urobilinogen Normal mg/dL (Less than 2); WBC/HPF 0-3 HPF (0-3); pH, Urine 5.5 (5.0-9.0)
[2022-08-04 00:57] LABS: Urine Culture Reflex No No
[2022-08-04 05:36] LABS: #Eosinphils 0.1 thou/uL (0.0-0.7); #Monocytes 0.7 thou/uL (0.11-0.59); #Neutrophils 5.9 thou/uL (1.40-6.50); %Basophils 0.3 % (0.0-1.0); %Eosinophils 1.4 % (0.0-10.0); %Lymphocytes 12.5 % (21.0-51.0); %Monocytes 9.2 % (0.0-10.0); %Neutrophils 76.6 % (42.0-75.0); Hemoglobin 13.1 g/dL (14.0-18.0); Mean Corpuscular HGB CONC 35.7 g/dL (32.0-36.0); Mean Corpuscular Hemoglobin 34.7 pg (27.0-31.0); Mean Corpuscular Volume 97.3 fl (78.0-98.0); Mean Platelet Volume 7.2 fL (7.4-10.4); Platelet Count 193 10x3/uL (130-400); RBC Distribution Width 11.4 % (11.5-14.5); Red Blood Cell (RBC) Count 3.78 mill/uL (4.70-6.10); White Blood Cell (WBC) Count 7.7 10x3/uL (4.8-10.8)
[2022-08-04 05:56] LABS: Anion Gap 7 mmol/L (10-20); BUN (Urea Nitrogen) 13 mg/dL (8.4-25.7); Calc. Creatinine Clearance 148 mL/min (70-130); Calcium 8.6 mg/dL (7.8-10.44); Carbon Dioxide 25 mmol/L (23-31); Chloride 103 mmol/L (98-107); Estimated GFR 105; Glucose 98 mg/dL (83-110); Magnesium 1.8 mg/dL (1.6-2.6); Potassium 3.6 mmol/L (3.5-5.1); Sodium 131 mmol/L (136-145)
[2022-08-04 08:57] VITALS: BP 148/77; TEMP 97.3
[2022-08-04] MEDS ORDERED: Aspirin 81 mg Enteric Coated Tablet PO SCH (09:00)
[2022-08-04] MEDS ORDERED: Magnesium 2 GM/50 ML(in water) 2 GM in Premix Bag 1 BAG IVPB SCH (09:00)
[2022-08-04] MEDS: Lisinopril 5 MG TAB PO SCH (09:27)
== END 2022-08-04 10:41 | disposition home or self-care (01) ==
LOC: ERS 03:18 → ERHOLD 08:54 → 2SW 15:59
PROVIDERS: ADMIT Internal Medicine; ATTEND Internal Medicine
DX: R07.89 Other chest pain (principal); R55 Syncope and collapse; I10 Essential (primary) hypertension; K59.00 Constipation, unspecified; I25.10 Atherosclerotic heart disease of native coronary artery without angina pectoris; D53.9 Nutritional anemia, unspecified; E27.8 Other specified disorders of adrenal gland; M25.531 Pain in right wrist; M19.031 Primary osteoarthritis, right wrist; I70.0 Atherosclerosis of aorta; K44.9 Diaphragmatic hernia without obstruction or gangrene; Z85.51 Personal history of malignant neoplasm of bladder; Z79.82 Long term (current) use of aspirin; Z79.899 Other long term (current) drug therapy; Z88.0 Allergy status to penicillin; Z95.5 Presence of coronary angioplasty implant and graft; Z20.822 Contact with and (suspected) exposure to COVID-19; W01.0XXA Fall on same level from slipping, tripping and stumbling without subsequent striking against object, initial encounter
CPT/HCPCS: 70450; 70551; 71045; 71275; 73110; 74177; 80048; 80053; 81001; 83690; 83735; 83880; 84484 ×2; 85025 ×2; 85379; 93005; 94760; 96374; 99285; G0378 ×3; U0003; U0005; 36415; J1650; J3475; Q9967